=== PATIENT | female | born 1965 | race Caucasian/White ===

== ENCOUNTER → 2020-04-23 15:06 | Outpatient (CLI) | payer OTHER | END | disposition home or self-care (01) | LOC: D.CT 15:00 | PROVIDERS: ATTEND Clinical Nurse Specialist Family Health | DX: M79.672 Pain in left foot (principal) ==

== ENCOUNTER → 2020-06-19 15:45 | Outpatient (CLI) | payer OTHER | END | disposition home or self-care (01) | LOC: D.MAMMO 05-27 15:00 | PROVIDERS: ATTEND Family Medicine | DX: Z12.31 Encounter for screening mammogram for malignant neoplasm of breast (principal) ==